=== PATIENT | female | born 1995 | race Caucasian/White ===

== ENCOUNTER 2022-03-20 10:04 | Emergency (ER) | payer OTHER, SELFPAY ==
[2022-03-20 10:28] VITALS: BP 137/86; PULSE 98; RESP 18; TEMP 36.5; O2SAT 100
--- NOTE | 2022-03-20 10:56 | ED.URI ---
HPI - URI/Sore Throat General Chief Complaint: Upper Respiratory Infection Stated Complaint: bilateral ear pain,sorethroat Source: patient Mode of arrival: ambulatory Limitations: no limitations History of Present Illness HPI Narrative: 27-year-old female presents to [facility] with complaints of cough, congestion and runny nose for the past 5-6 days; patient 4 sessions for bilateral ear pain, right is worse than left 4 days ago. Patient reports that she had tubes placed as a child. Patient denies fever, body aches, chills, nausea, vomiting or diarrhea. Patient has been taking [id number] DayQuil and ibuprofen with minimal relief. MD elicited complaint: rhinorrhea, nasal congestion and other (bilateral ear pain ) Onset (ago): day(s) (5) Able to tolerate fluids by mouth: Yes Treatments prior to arrival: ibuprofen and cold medicine Related Data Home Medications Medication Instructions Recorded Confirmed norgestimate-ethinyl estradiol 1 tablet DAILY 03/20/22 03/20/22 0.18 mg/0.215mg/0.25mg-35 mcg(28)tablet (Tri-Sprintec (28)) sertraline 50 mg tablet 50 mg DAILY 03/20/22 03/20/22 Allergies Allergy/AdvReac Type Severity Reaction Status Date / Time No Known Allergies Allergy Mild Verified 03/20/22 10:34 Review of Systems Constitutional: Constitutional: Denies chills, Denies fatigue, Denies fever(s) and Denies weakness ENT: Denies dizziness, Denies epistaxis and Reports nasal congestion Comments: bilateral ear pain; right is worse than left Respiratory: Respiratory: Denies chest congestion, Reports cough, Denies dyspnea and Denies wheezing Gastrointestinal: Gastrointestinal: Denies abdominal pain, Denies diarrhea, Denies nausea and Denies vomiting Neurologic: Denies dizziness PMFSH Family History Family History Other Carcinoma of colon Family history of elevated blood lipids Social History Social History Second hand tobacco smoke exposure: Yes Comments At time of signature, I agree with nursing past medical, surgical, social and family history. There is no relevant family history pertinent to the presenting complaint. Exam Const: General: healthy appearing Nutritional Appearance: well nourished Orientation/consciousness: patient oriented x3 Limitations: no limitations HENMT: Ears: external ears normal and TM abnormal dull on the right, erythematous on the right and obstructed by cerumen on the left Face and sinus: normal facial exam Mouth: Yes Normal oral and palatal mucosa present and Yes moist mucous membranes Teeth and gingiva: dentition normal Throat: posterior oropharynx normal Eyes: Conjunctivae: conjunctivae normal Neck: Neck: normal visual inspection Resp: Effort & Inspection: normal respiratory effort and not labored Auscultation: clear to auscultation bilaterally, no crackles, no rales, no rhonchi and no wheezes Cardio: Rate: regular rate Rhythm: regular rhythm Heart sounds: no murmurs Skin: General skin exam: normal color Rashes: no rashes Wounds: no wounds Neuro: General: patient oriented x3 Cranial nerves: Yes Nystagmus not present Speech: normal speech Psych: Mental Status: mental status grossly normal Affect: normal affect Course Course Level of Care: Express Care Visit Vital Signs Vital signs: Vital Signs Temperature 36.5 C 03/20/22 10:28 Pulse Rate 98 03/20/22 10:28 Respiratory Rate 18 03/20/22 10:28 Blood Pressure 137/86 03/20/22 10:28 Pulse Oximetry 100 03/20/22 10:28 Oxygen Delivery Room Air 03/20/22 10:28 Temperature 36.5 C 03/20/22 10:28 Pulse Rate 98 03/20/22 10:28 Respiratory Rate 18 03/20/22 10:28 Blood Pressure 137/86 03/20/22 10:28 Pulse Oximetry 100 03/20/22 10:28 Oxygen Delivery Room Air 03/20/22 10:28 MDM - URI/Sore Throat MDM Narrative Medical decision making narrative:
== END 2022-03-20 11:11 | disposition home or self-care (01) ==
PROVIDERS: Emergency Provider Nurse Practitioner Family; PCP Nurse Practitioner Adult Health
DX: H66.91 Otitis media, unspecified, right ear (principal); F41.9 Anxiety disorder, unspecified
CPT/HCPCS: 99213; G0463

== ENCOUNTER 2022-06-29 07:31 | Outpatient (CLI) | payer OTHER, SELFPAY ==
[2022-06-29 08:00] LABS: Basophils Absolute Auto 0.1 K/mm3 (0.0-0.1); Basophils Percent Auto 0.6 % (0.2-1.2); Eosinophils Absolute Auto 0.2 K/mm3 (0-0.3); Eosinophils Percent Auto 2.1 % (0-4.4); Hematocrit 38.2 % (37.0-47.0); Hemoglobin 12.6 g/dL (12.0-15.0); Immature Granulocyte Absolute 0.02 K/mm3 (0.00-0.031); Immature Granulocyte Percent A 0.2 % (0-0.5); Lymphocytes Absolute Auto 2.07 K/mm3 (0.9-3.2); Lymphocytes Percent Auto 23.9 % (18.3-44.2); Mean Corpuscular Hemoglobin 27.7 pg (26-34); Mean Platelet Volume 9.7 fl (7.4-10.4); Monocytes Absolute Auto 0.6 K/mm3 (0.1-0.6); Monocytes Percent Auto 7.3 % (2.6-8.5); Neutrophils Absolute Auto 5.7 K/mm3 (1.3-6.7); Neutrophils Percent Auto 65.9 % (45.5-73.1); Platelet Count Result 327 k/mm3 (150-375); Red Blood Count 4.55 M/mm3 (4.2-5.4); Red Cell Distribution Width 12.9 % (11.5-14.5); White Blood Count 8.7 K/mm3 (4.5-10.0)
[2022-06-29 08:46] LABS: HIV 1/2 Ab P24 Ag Result Negative (Negative)
[2022-06-29 08:51] LABS: Hepatitis B Surface Antigen Negative (Negative)
[2022-06-29 08:56] LABS: Rubella IgG Antibody > 120.0 IU/ML
[2022-07-01 08:55] LABS: CMV IgG Antibody <0.60 U/mL (<0.60)
== END 2022-06-29 07:32 | disposition home or self-care (01) ==
PROVIDERS: PCP Nurse Practitioner Family; Visit Provider Student in an Organized Health Care Education/Training Program
DX: N94.89 Other specified conditions associated with female genital organs and menstrual cycle (principal)
CPT/HCPCS: 36415; 84702; 85025; 86644; 86703; 86747; 86762; 86787; 86850; 86900; 86901; 87086; 87340; G0432

== ENCOUNTER 2022-11-23 11:21 | Outpatient (CLI) | payer OTHER, SELFPAY ==
[2022-11-23 14:44] LABS: Basophils Percent Auto 0.2 % (0.2-1.2); Eosinophils Absolute Auto 0.1 K/mm3 (0-0.3); Hematocrit 34.3 % (37.0-47.0); Hemoglobin 11.1 g/dL (12.0-15.0); Immature Granulocyte Absolute 0.05 K/mm3 (0.00-0.031); Immature Granulocyte Percent A 0.5 % (0-0.5); Lymphocytes Absolute Auto 1.68 K/mm3 (0.9-3.2); Lymphocytes Percent Auto 17.9 % (18.3-44.2); Mean Corpuscular HGB Conc 32.4 g/dl (32-36); Mean Corpuscular Hemoglobin 27.3 pg (26-34); Mean Corpuscular Volume 84.5 fl (80-100); Mean Platelet Volume 10.2 fl (7.4-10.4); Monocytes Absolute Auto 0.6 K/mm3 (0.1-0.6); Neutrophils Percent Auto 74.4 % (45.5-73.1); Platelet Count Result 281 k/mm3 (150-375); Red Blood Count 4.06 M/mm3 (4.2-5.4); Red Cell Distribution Width 12.8 % (11.5-14.5); White Blood Count 9.4 K/mm3 (4.5-10.0)
[2022-11-23 15:44] LABS: Glucose 1 Hour PP 50gm Dose 132 mg/dL
[2022-11-23 16:00] LABS: HIV 1/2 Ab P24 Ag Result Negative (Negative)
== END 2022-11-23 11:22 | disposition home or self-care (01) ==
LOC: ANHGOSHLAB 11:23
PROVIDERS: PCP Nurse Practitioner Family; Visit Provider Obstetrics & Gynecology
DX: Z34.90 Encounter for supervision of normal pregnancy, unspecified, unspecified trimester (principal)
CPT/HCPCS: 36415; 82947; 85025; 86703; G0432

== ENCOUNTER 2023-01-03 06:58 | Outpatient (CLI) | payer OTHER, SELFPAY ==
--- NOTE | ~2023-01-03 | US_ITS ---
EXAMINATION: US OB follow up DATE: 01/03/2023 07:48 INDICATION: Assess growth and amniotic fluid index during third trimester TECHNIQUE: Real-time ultrasound of the pelvis was performed. The interpreting radiologist was not pre sent for the study. COMPARISON: 09/19/2022 and 07/04/2022 FINDINGS: There is a single living fetus in vertex presentation. The placenta is anterior. heart rate is 136 beats per minute (bpm). The amniotic fluid index is 22.6 cm, which is normal (5th%-95%: 7.9-24. 9 cm at 35 weeks estimated gestational age). The following biometric data were obtained: BPD: 9.6 cm -> 39 weeks 2 days Head circumference: 34.2 cm -> 39 weeks 3 days Abdominal circumference: 34.2 cm -> 38 weeks 1 days Femur length: 7.2 cm -> 36 weeks 6 days These measurements are concordant. Head circumference to abdominal circumference ratio: 1.00 (normal range 0.88-1.06). Estimated weight: 3407 g (+/-) 511 g or 7 lbs. 8 oz. (+/-) 1 lbs. 2 oz. IMPRESSION: 1. Single living fetus in vertex presentation with heart rate of 136 bpm. 2. Normal amniotic fluid index of 22.6 cm. 3. Estimated weight is >97th percentile by Hadlock criteria when 02/03/2023 is used as the estim ated date of delivery (HERIBERTO). Please correlate with clinical information or earlier ultrasounds for mo st accurate HERIBERTO. Reviewed, dictated and finalized at location A. IMPRESSION: 1. Single living fetus in vertex presentation with heart rate of 136 bpm. 2. Normal amniotic fluid index of 22.6 cm. 3. Estimated weight is >97th percentile by Hadlock criteria when 3 is used as the estimated date of delivery (HERIBERTO). Please correlate with clinic al information or earlier ultrasounds for most accurate HERIBERTO.
== END 2023-01-03 06:59 | disposition home or self-care (01) ==
PROVIDERS: PCP Nurse Practitioner Family; Visit Provider Student in an Organized Health Care Education/Training Program
DX: Z34.83 Encounter for supervision of other normal pregnancy, third trimester (principal)
CPT/HCPCS: 76816

== ENCOUNTER 2023-01-21 05:25 | Inpatient (IN) | payer OTHER, SELFPAY ==
[2023-01-21] VITALS (134 sets, daily range): BP systolic 93–198; BP diastolic 48–173; PULSE 75–180; RESP 18; TEMP 36.3–37.1; O2SAT 92–100; BMI 41.3
--- NOTE | 2023-01-21 06:36 | WPDANESEPP ---
Anes - Eval Pre Procedure Procedure: labor epidural Date/Time: 01/21/23 06:36 Pre Op Diagnosis: SROM Patient Data Age: 28 Gender: F Height: Weight: Last Vital Signs Pulse 109 H 01/21/23 06:30 BP 130/83 01/21/23 06:30 Allergies Allergy/AdvReac Type Severity Reaction Status Date / Time No Known Allergies Allergy Mild Verified 01/20/23 10:03 Home Medications Medication Instructions Recorded Confirmed Type vit no.95-ferrous 1 tablet PO DAILY 01/11/23 01/20/23 History fumarate 28 mg-folic acid 800 mcg tablet () sertraline 50 mg tablet 50 mg PO DAILY #30 tabs 01/12/23 01/20/23 Rx Patient hx anesthesia problems: none Family hx anesthesia problems: none Results Review: All pre-operative results and documents have been reviewed as part of the pre-operative evaluation. [facility] Past Medical History Medical History Suppression of menses Surgical History Surgical History History of tonsillectomy Family History Family History Mother Family history of elevated blood lipids Grandparent Family history of elevated blood lipids Grandparent Carcinoma of colon Social History Social History Smoking status: Former smoker Second hand tobacco smoke exposure: Yes Alcohol intake: former Substance use: never Lack of Transportation: No Lack of Food: Never True Current Housing: I Have Housing Concerned About Future Housing: No Difficulty Paying Gas/Electric Bills: No Difficulty Paying for Meds: No Currently Unemployed: No Education: Bachelor's Degree Difficulty w/ Childcare or Family Care: No Living arrangements: other Additional living arrangements comments: Occupation/Education: occupation Gender identity (if verbalized by the patient): Female Sexual Orientation (if Verbalized by the Patient): Straight or Heterosexual Spiritual care concerns: No Exam Day of Procedure 01/21/23 06:36 Patient weight: obese Heart: regular rate and rhythm Lungs: clear to auscultation Airway: Mallampati scale Neurological: alert and oriented
[2023-01-21] MEDS: OXYTOCIN 30 UNITS/NS 500 ML 30 UNITS/500 ML BAG 6 UNITS IV CONT (07:00)
[2023-01-21] MEDS: LACTATED RINGERS 1,000 ML 125 ML IV CONT ×2 (07:00→09:45)
[2023-01-21 07:02] LABS: Basophils Percent Auto 0.3 % (0.2-1.2); Eosinophils Absolute Auto 0.2 K/mm3 (0-0.3); Eosinophils Percent Auto 1.4 % (0-4.4); Hematocrit 36.3 % (37.0-47.0); Hemoglobin 11.7 g/dL (12.0-15.0); Immature Granulocyte Absolute 0.04 K/mm3 (0.00-0.031); Immature Granulocyte Percent A 0.4 % (0-0.5); Lymphocytes Absolute Auto 2.72 K/mm3 (0.9-3.2); Lymphocytes Percent Auto 26.1 % (18.3-44.2); Mean Corpuscular HGB Conc 32.2 g/dl (32-36); Mean Corpuscular Hemoglobin 26.6 pg (26-34); Mean Corpuscular Volume 82.5 fl (80-100); Monocytes Absolute Auto 0.8 K/mm3 (0.1-0.6); Monocytes Percent Auto 8.1 % (2.6-8.5); Neutrophils Absolute Auto 6.6 K/mm3 (1.3-6.7); Neutrophils Percent Auto 63.7 % (45.5-73.1); Platelet Count Result 292 k/mm3 (150-375); Red Cell Distribution Width 14.4 % (11.5-14.5); White Blood Count 10.4 K/mm3 (4.5-10.0)
--- NOTE | 2023-01-21 07:08 | LDADM ---
This patient, Florecita Arrington, was admitted to Labor/Delivery/Recovery 106 on 01/21/23 at 05:25. Plans for labor, pain management and were discussed with patient. Patient/family oriented to hospital policies and general routines including ID bracelet, bed and alarms, visiting hours, pain management, procedures, bathroom and other care routines, personal items, smoking policy, room service/diet and guest tray routines, security routines, and visiting hours. Patient/Family are encouraged to report perceived risks to care and to ask questions if they do not understand what they are told or what they should do. See OBIX for further documentation.
[2023-01-21] MEDS: ONDANSETRON INJ 4 MG/2 ML VIAL IV PUSH (12:15)
--- NOTE | 2023-01-21 13:02 | WPDOBADMIT ---
Obstetrics - Admit Note Admission Note: record reviewed. No pertinent additions to the history and/or any subsequent changes in the physical findings that are not consistent with the expected course of the were found. Additions to the history and/or subsequent changes in the physical findings follow. None.
--- NOTE | 2023-01-21 13:02 | WPDHPUPDATE1 ---
History and Physical Update Update Date/Time: 01/21/23 13:02 History and Physical has been reviewed, including an updated exam of the patient. There are NO changes in the patient's condition. Risks, benefits, and alternatives have been discussed and questions answered. Patient agrees to proceed with procedure.
--- NOTE | 2023-01-21 13:02 | PM.OBPRVD ---
OB - Delivery Note Procedure Delivery augmentation: Pitocin Delivery monitor: External FHT and External Uterine Route of delivery: Episiotomy description: None Laceration Description: Perineal - 2nd Degree Delivery repair: chromic Specimen: No Quantitative Blood Loss (ml): 300 Anesthesia type: Epidural Disposition: Floor Complications: none Narrative: patient prepped draped usual manner for this procedure. Maternal expulsive efforts delivered vertex over intact perineum. Rest of baby was delivered without difficulty cord clamped cut. Placenta delivered spontaneously and uterus well contracted. Cervix vagina vulva were inspected with second-degree laceration noted. 2-0 chromic was used to approximate the vaginal tissue deep tissue and subcuticular layer with good approximation hemostasis achieved. Again uterus was well contracted there was no significant bleeding at this point the procedure was considered terminated. [place] Baby Weeks of gestation at delivery: 38 gender: Male presentation: vertex Placenta delivery description: Spontaneous Cord Vessel Description: 3 Vessels [facility] Delivery Billing Delivery Delivery: Delivery Charge
[2023-01-21] MEDS: OXYTOCIN 30 UNITS/NS 500 ML 30 UNITS/500 ML BAG 125 UNITS IV CONT (13:12)
[2023-01-21] MEDS: WITCH HAZEL 40 PADS 1 PAD TOPICAL (14:49)
[2023-01-21] MEDS: BENZOCAINE 20% AER SPR (*SP) 56 GM CAN 1 SPRAY TOPICAL (14:49)
--- NOTE | 2023-01-21 15:15 | OBPPTRN ---
Patient transferred to post room # 279 via wheelchair accompanied both spouse and family and in open crib. Support person present. PT introductions made and plan of care discussed per post , pain management, breast feeding, daily care activities. PT Oriented to unit, room, information board, rooming in, admission packet and security measures. PT received such instructions per one to one discussion, mom baby care guide and demonstrations this shift. PT and spouse both recipients of such instructions and no barriers to learning identified at this time. Patient verbalizes understanding.
[2023-01-21] MEDS: POLYSACCHARIDE IRON COMPLEX 150 MG CAPSULE PO (17:17)
[2023-01-21] MEDS: SERTRALINE HCL 50 MG TABLET PO (17:18)
[2023-01-21] MEDS: LANOLIN (LANSINOH) 7.5 GM CREAM 1 APPLIC TOPICAL (17:19)
[2023-01-21] MEDS: DOCUSATE SODIUM 100 MG CAPSULE PO (17:19)
[2023-01-21] MEDS: IBUPROFEN 600 MG TABLET PO (17:20)
[2023-01-22 04:15] VITALS: BP 112/66; PULSE 89; RESP 18; TEMP 36.6; O2SAT 98
[2023-01-22 05:07] LABS: Hematocrit 30.6 % (37.0-47.0); Hemoglobin 9.7 g/dL (12.0-15.0)
--- NOTE | 2023-01-22 07:20 | PC.NURSE ---
PT introductions made and plan of care discussed per post , pain management, breast feeding, daily care activities and pending discharge to home. PT received such instructions per one to one discussion, mom baby care guide and demonstrations this shift. PT and spouse both recipients of such instructions and no barriers to learning identified at this time. Patient verbalizes understanding.
--- NOTE | 2023-01-22 10:00 | PM.OBDSVD ---
DS: Admitting Diagnosis Discharge Date 9 [id number] Admitting Diagnosis DS: Discharge Diagnosis Discharge Diagnosis (1) , delivered: Code(s): O80 - Encounter for full-term uncomplicated delivery Status: Acute OB - DS: Summary OB Procedures : None OB Procedures Intrapartum: Spontaneous Vag Delivery OB Procedures: : None Time Spent with Patient Time attestation: Total time spent providing and/or coordinating discharge services: DS: Data Data Completed and Pending Labs on day of discharge: Labs from last 24 hours 01/22/23 04:14 Hgb 9.7 L Hct 30.6 L Discharge Plan Discharge Discharging Clinician: Isaias Canas Patient Disposition: Home, Self-Care Activity: as tolerated Diet: as tolerated Patient Instructions: Antibiotic Form Stand Alone Forms: General Discharge Information Follow-up/Referrals: Rafy Hendrickson MD [Physician] - 3 Weeks Discharge Medications: New ibuprofen 600 mg Tablet 600 mg PO Q6H PRN (Reason: Cramping) Qty: 30 0RF Continued sertraline 50 mg tablet 50 mg PO DAILY Qty: 30 2RF PNV cmb#95-ferrous fumarate-FA [] 28 mg iron- 800 mcg Tablet 1 tablet PO DAILY Date of admission: 01/21/23 05:25 Primary Care Provider: Ladonna,Debby Gray Admitting Provider: Rafy Hendrickson Attending physician on admission: Rafy Hendrickson Condition: Stable
[2023-01-22 11:30] VITALS: BP 127/80; PULSE 100; RESP 16; TEMP 36.8; O2SAT 99
[2023-01-22] MEDS: DOCUSATE SODIUM 100 MG CAPSULE PO ×2 (11:37→17:46)
[2023-01-22] MEDS: MULTIVIT/MIN/PREN/FOL AC/IRON TABLET 1 TAB PO (11:38)
[2023-01-22] MEDS: POLYSACCHARIDE IRON COMPLEX 150 MG CAPSULE PO ×2 (11:38→17:46)
[2023-01-22] MEDS: IBUPROFEN 600 MG TABLET PO ×2 (11:38→17:46)
--- NOTE | 2023-01-22 13:19 | WPDANLDPN2 ---
Anes-Prog Note L&D Date/Time: 01/22/23 13:19 Comfortable throughout: labor and delivery Neuraxial method: epidural Epidural/Spinal procedure site: clean & non-tender Neuro status: Neuro function grossly intact. Cardiovascular status: normal Respiratory status: normal Airway patency: baseline Mental status: baseline Post-Op hydration status: normal Vital Signs: Last Vital Signs Temp 36.6 C 01/22/23 04:15 Pulse 89 01/22/23 04:15 Resp 18 01/22/23 04:15 BP 112/66 01/22/23 04:15 Pulse Ox 98 01/22/23 04:15 O2 Del Method Room Air 01/22/23 04:15 Pain score (VAS): 0 I/O: Intake & Output 01/21/23 01/22/23 01/22/23 23:59 07:59 15:59 Intake Total 500 480 Balance 500 480 Post-procedural complaints: none Patient feedback: Patient satisfied with anesthetic care.
--- NOTE | 2023-01-22 17:30 | PC.NURSE ---
PT received discharge instructions per protocol and verbalized understanding of such care.
[2023-01-23 10:30] LABS: Rapid Plasma Reagin Non-Reactive (NonReactive)
== END 2023-01-22 18:35 | disposition home or self-care (01) | DRG 807 ==
LOC: ANHOB2 01-22 11:23 → ANHLDR 01-24 10:33 → ANHOB2 01-24 10:33
PROVIDERS: Admitting Provider Obstetrics & Gynecology; PCP Nurse Practitioner Family; Visit Provider Obstetrics & Gynecology
DX: O62.3 Precipitate labor (principal); Z37.0 Single live birth; O70.1 Second degree perineal laceration during delivery; Z3A.38 38 weeks gestation of pregnancy
CPT/HCPCS: 36415; 84112; 85014; 85018; 85025; 86592; 86850; 86900; 86901; A9270; J2405; J2590; J2795; J7120

== ENCOUNTER 2023-06-13 10:30 | Outpatient (CLI) | payer OTHER, SELFPAY ==
[2023-06-13 11:00] LABS: Hematocrit 41.1 % (37.0-47.0); Mean Corpuscular HGB Conc 31.6 g/dl (32-36); Mean Corpuscular Hemoglobin 25.2 pg (26-34); Mean Corpuscular Volume 79.7 fl (80-100); Mean Platelet Volume 9.8 fl (7.4-10.4); Platelet Count Result 348 k/mm3 (150-375); Red Blood Count 5.16 M/mm3 (4.2-5.4); Red Cell Distribution Width 14.4 % (11.5-14.5); White Blood Count 10.7 K/mm3 (4.5-10.0)
[2023-06-13 11:12] LABS: Alanine Aminotransferase 20 U/L (6-35); Albumin Level 4.2 g/dL (3.5-5.1); Alkaline Phosphatase 96 U/L (38-126); Anion Gap 11 mmol/L (8-16); Aspartate Amino Transferase 30 U/L (14-36); Bilirubin,Total 0.3 mg/dL (0.2-1.3); Blood Urea Nitrogen 15 mg/dL (7-17); Calcium 8.8 mg/dL (8.4-10.2); Carbon Dioxide 19 mmol/L (22-30); Chloride 109 mmol/L (98-107); Cholesterol 146 mg/dL (0-200); Estimated Glomerular Filt Rate > 60; Glucose 143 mg/dL (65-110); HDL Direct 42 mg/dL; Potassium 3.8 mmol/L (3.4-5.0); Sodium 139 mmol/L (137-145); Triglycerides 101 mg/dL (<150)
[2023-06-13 11:19] LABS: Hemoglobin A1C 5.7 % (<5.7)
[2023-06-13 11:22] LABS: LDL Cholesterol Direct 79 mg/dL
== END 2023-06-13 10:31 | disposition home or self-care (01) ==
LOC: ANHLAB 10:32
PROVIDERS: PCP Nurse Practitioner Adult Health; Visit Provider Nurse Practitioner Adult Health
DX: Z13.9 Encounter for screening, unspecified (principal); E66.9 Obesity, unspecified
CPT/HCPCS: 36415; 80053; 80061; 83036; 84443; 85027